=== PATIENT | male | born 1940 | race Caucasian/White ===

== ENCOUNTER 2016-06-17 13:39 | Inpatient (IN) | payer MEDICARE, OTHER ==
[~2016-06-17] VITALS: Ht 172.7 cm; Wt 107.9 kg
[2016-06-17 14:36] VITALS: BP 128/92; PULSE 72; TEMP 98
[2016-06-17 17:21] VITALS: BP 124/59; PULSE 70; TEMP 99.1
[2016-06-17 17:29] VITALS: BP 124/59; PULSE 70; TEMP 99.1
[2016-06-17 18:31] VITALS: BP 124/59; PULSE 70; TEMP 99.1
[2016-06-18 03:13] VITALS: BP 117/50; PULSE 69; TEMP 98
[2016-06-18 09:09] VITALS: BP 157/71; PULSE 74; TEMP 98.8
[2016-06-18 17:37] VITALS: BP 139/60; PULSE 67; TEMP 97.7
[2016-06-19 04:03] VITALS: BP 136/66; PULSE 63; TEMP 98.4
[2016-06-19 07:25] LABS: BASO # 0.1 (0.0-0.2); BASO % 0.6 % (0.0-2.0); EOS # 0.4 (0.0-0.7); EOS % 4.4 % (0-4.0); GRAN # 3.8 (1.4-6.5); GRAN % 45.9 % (42.2-75.2); HEMATOCRIT 38.9 % (42.0-52.0); HEMOGLOBIN 12.9 g/dl (13.5-18.0); LYMPH # 2.9 (1.2-3.4); LYMPH % 35.1 % (20.0-51.0); MEAN CELL VOLUME 96 fl (80.0-100.0); MEAN CORPUSCULAR HEMOGLOBIN 32 pg (27.0-31.0); MEAN CORPUSCULAR HGB CONC 33 g/dl (33.0-37.0); MEAN PLATELET VOLUME 12.6 fl (7.4-10.4); MONO # 1.1 (0.1-0.6); MONO % 13.3 % (1.7-9.3); PLATELET COUNT 127 K/mm3 (130-400); RED BLOOD COUNT 4.07 M/mm3 (4.20-5.60); REDCELL DISTRIBUTION WIDTH-CV 13.2 % (11.5-14.5); WHITE BLOOD COUNT 8.2 K/mm3 (4.8-10.8)
[2016-06-19 07:30] LABS: CALCIUM 9.3 mg/dL (8.4-10.2); CREATININE, serum 1.71 mg/dL (0.66-1.25); MAGNESIUM 1.8 mg/dL (1.6-2.3); POTASSIUM 3.9 mmol/L (3.4-5.0)
[2016-06-19 16:46] VITALS: BP 121/90; PULSE 71; TEMP 97.8
[2016-06-20 05:24] VITALS: BP 148/89; PULSE 84; TEMP 98.2
[2016-06-20 18:50] VITALS: BP 151/61; PULSE 73; TEMP 98
[2016-06-21 05:41] VITALS: BP 137/71; PULSE 72; TEMP 98.3
[2016-06-21 16:01] VITALS: BP 135/58; PULSE 69; TEMP 97.9
[2016-06-21 16:37] VITALS: BP 137/64; PULSE 69; TEMP 98.1
[2016-06-22 04:19] VITALS: BP 137/68; PULSE 72; TEMP 97.1
[2016-06-22 07:19] LABS: CALCIUM 9.6 mg/dL (8.4-10.2); CREATININE, serum 1.47 mg/dL (0.66-1.25); POTASSIUM 4.1 mmol/L (3.4-5.0)
[2016-06-22 17:28] VITALS: BP 120/85; PULSE 78; TEMP 98.8
[2016-06-23 04:29] VITALS: BP 122/98; PULSE 78; TEMP 98.5
[2016-06-23] MEDS ORDERED: CLARITIN 1010 MG/TAB PO (11:47)
[2016-06-23] MEDS ORDERED: PROAIR HFA0.09 MG/AC IH (11:47)
[2016-06-23] MEDS ORDERED: HYTRIN10 M1 PO (11:48)
[2016-06-23] MEDS ORDERED: LIPITOR 40MG TA40 MG PO (11:48)
[2016-06-23] MEDS ORDERED: ASPIRIN E.C. 8181 MG PO (11:49)
[2016-06-23] MEDS ORDERED: NORVASC 10MG10 MG PO (11:49)
[2016-06-23] MEDS ORDERED: TENORMIN100 MG PO (11:49)
[2016-06-23] MEDS ORDERED: TYLENOL 325MG325 MG PO (11:50)
[2016-06-23] MEDS ORDERED: SINEMET-25/251 UDTAB PO (11:50)
[2016-06-23] MEDS ORDERED: NEURONTIN300 MG/CAP PO (11:50)
[2016-06-23] MEDS ORDERED: LEVOXYL0.025 MG PO (11:51)
[2016-06-23] MEDS ORDERED: ZYLOPRIM 100MG100 MG PO (11:51)
[2016-06-23] MEDS ORDERED: ZANTAC 150MG T150 MG PO (11:51)
[2016-06-23] MEDS ORDERED: LEVEMIR FLEX100 U/ML SQ (11:53)
[2016-06-23] MEDS ORDERED: NOVOLOG FLEX100 U/ML SQ (11:53)
== END 2016-06-23 13:11 | disposition home or self-care (01) | DRG 948 ==
PROVIDERS: Internal Medicine
DX: R53.81 Other malaise (principal); N17.9 Acute kidney failure, unspecified; I16.0 Hypertensive urgency; E11.9 Type 2 diabetes mellitus without complications; G20 Parkinson's disease
CPT/HCPCS: 99222-AI; 99232-AI; 99239; J1644; J1815

== ENCOUNTER 2016-09-17 10:30 | Outpatient (RCR) | payer MEDICARE, OTHER ==
[~2016-09-17 10:30] MED LIST: ASPIRIN E.C. 8181 MG PO; CLARITIN 1010 MG/TAB PO; HYTRIN10 M1 PO; LEVEMIR FLEX100 U/ML SQ; LEVOXYL0.025 MG PO; LIPITOR 40MG TA40 MG PO; NEURONTIN300 MG/CAP PO; NORVASC 10MG10 MG PO; NOVOLOG FLEX100 U/ML SQ; PROAIR HFA0.09 MG/AC IH; SINEMET-25/251 UDTAB PO; TENORMIN100 MG PO; TYLENOL 325MG325 MG PO; ZANTAC 150MG T150 MG PO; ZYLOPRIM 100MG100 MG PO
== END 2016-09-18 12:55 | disposition home or self-care (01) ==
LOC: WSPT 10:30
DX: Z47.1 Aftercare following joint replacement surgery (principal); Z96.652 Presence of left artificial knee joint
CPT/HCPCS: G8978-GP; G8979-GP; G8980-GP

== ENCOUNTER → 2016-10-30 | Outpatient (CLI) | payer OTHER, MEDICARE | LOC: MC.RAD 09:30 | DX: R22.31 Localized swelling, mass and lump, right upper limb (principal) ==

== ENCOUNTER 2017-11-19 08:30 | Day surgery (SDC) | payer OTHER ==
[~2017-11-19] VITALS: Ht 172.7 cm; Wt 108.7 kg
[2017-11-19 09:08] VITALS: BP 136/72; PULSE 72; TEMP 97.7
[2017-11-19] MEDS ORDERED: SYNTHROID 0.0.025 MG PO (09:14)
[2017-11-19] MEDS ORDERED: LEVEMIR FLEX100 U/ML SQ (09:15)
[2017-11-19] MEDS ORDERED: COZAAR 50MG50 MG/TAB PO (09:15)
[2017-11-19] MEDS ORDERED: INDOCIN 25MG CA25 MG PO (09:16)
[2017-11-19] MEDS ORDERED: HYTRIN 5MG C5 MG/CAP PO (09:17)
[2017-11-19] MEDS ORDERED: KLOR-CON SPRIN10 MEQ PO (09:17)
[2017-11-19] MEDS ORDERED: TYLENOL 325MG325 MG PO (09:18)
[2017-11-19] MEDS ORDERED: FLONASEALLERGY NS (09:19)
[2017-11-19] MEDS ORDERED: DEBROX OT (09:20)
[2017-11-19] MEDS ORDERED: ANTIVERT 25MG25 MG PO (09:21)
[2017-11-19] MEDS ORDERED: NOVOLOG FLEX100 U/ML SQ (09:21)
[2017-11-19] MEDS ORDERED: LASIX 20MG TABL20 MG PO (09:22)
[2017-11-19] MEDS ORDERED: LIPITOR 80MG80 MG PO (09:22)
[2017-11-19] MEDS ORDERED: ZANTAC 150150 MG PO (09:24)
[2017-11-19] MEDS ORDERED: TENORMIN 5050 MG/TAB PO (09:25)
[2017-11-19] MEDS ORDERED: NEURONTIN300 MG/CAP PO (09:25)
[2017-11-19 11:10] VITALS: BP 100/57; PULSE 67; TEMP 97.7
[2017-11-19 11:25] VITALS: BP 97/49; PULSE 66
[2017-11-19 11:40] VITALS: BP 102/52; PULSE 16; TEMP 68
[2017-11-19 12:28] VITALS: BP 100/53; PULSE 66
== END 2017-11-19 12:00 | disposition home or self-care (01) ==
LOC: SDCO 08:30
DX: Z12.11 Encounter for screening for malignant neoplasm of colon (principal); D12.3 Benign neoplasm of transverse colon; D12.5 Benign neoplasm of sigmoid colon; E11.9 Type 2 diabetes mellitus without complications; E78.00 Pure hypercholesterolemia, unspecified; K57.30 Diverticulosis of large intestine without perforation or abscess without bleeding; Z88.0 Allergy status to penicillin; Z79.82 Long term (current) use of aspirin; Z86.73 Personal history of transient ischemic attack (TIA), and cerebral infarction without residual deficits; Z86.010 Personal history of colon polyps; Z87.891 Personal history of nicotine dependence
CPT/HCPCS: OP; J2250; J2405; J3010; J7030

== ENCOUNTER 2019-03-07 12:07 | Day surgery (SDC) | payer OTHER ==
--- NOTE | 2019-03-06 13:49 | NUR ---
called pt at [phone] and left generic message with my name and our unit phone number for patient to call back.
[~2019-03-07] VITALS: Ht 172.7 cm; Wt 110.0 kg
[2019-03-07] VITALS (12 sets, daily range): BP systolic 123–177; BP diastolic 67–89; PULSE 56–66; TEMP 97.9
[~2019-03-07 12:07] MED LIST changes: +ANTIVERT 25MG25 MG PO; +COZAAR 50MG50 MG/TAB PO; +DEBROX OT; +FLONASEALLERGY NS; +HYTRIN 5MG C5 MG/CAP PO; +INDOCIN 25MG CA25 MG PO; +KLOR-CON SPRIN10 MEQ PO; +LASIX 20MG TABL20 MG PO; +LIPITOR 80MG80 MG PO; +SYNTHROID 0.0.025 MG PO; +TENORMIN 5050 MG/TAB PO; +ZANTAC 150150 MG PO
[2019-03-07] MEDS ORDERED: LEVEMIR FLEX100 U/ML SQ (12:49)
[2019-03-07] MEDS ORDERED: FLOMAX 0.40.4 MG/CAP PO (12:50)
[2019-03-07] MEDS ORDERED: TENORMIN 5050 MG/TAB PO (12:53)
[2019-03-07] MEDS ORDERED: GRALISE300 MG PO (12:53)
[2019-03-07] MEDS ORDERED: LEVOXYL0.05 MG PO (12:54)
[2019-03-07] MEDS ORDERED: ZANTAC 150150 MG PO (12:55)
[2019-03-07] MEDS ORDERED: OMEGA-3 1000 MG1 CAP PO (12:55)
[2019-03-07] MEDS ORDERED: GLUCOSAMINE 1000 PO (12:56)
[2019-03-07] MEDS ORDERED: MULTI VITAMINS1 TAB PO (12:57)
[2019-03-07] MEDS ORDERED: CALCIUM CARBON650 M2 PO (12:57)
[2019-03-07] MEDS ORDERED: OCUVITE1 TA1 PO (12:58)
[2019-03-07] MEDS ORDERED: VITAMIN D3400 I1 PO (12:59)
[2019-03-07] MEDS ORDERED: VITAMIN C500 MG PO (13:00)
[2019-03-07 13:18] LABS: PROTHROMBIN TIME 12.1 SECONDS (9.7-12.8)
[2019-03-07 13:19] LABS: HEMATOCRIT 41.2 % (42.0-52.0); HEMOGLOBIN 14.1 g/dl (13.5-18.0); MEAN CELL VOLUME 94 fl (80.0-100.0); MEAN CORPUSCULAR HEMOGLOBIN 32 pg (27.0-31.0); MEAN CORPUSCULAR HGB CONC 34 g/dl (33.0-37.0); MEAN PLATELET VOLUME 12.6 fl (7.4-10.4); PLATELET COUNT 116 K/mm3 (130-400); RED BLOOD COUNT 4.37 M/mm3 (4.20-5.60); REDCELL DISTRIBUTION WIDTH-CV 13.3 % (11.5-14.5)
[2019-03-07 14:02] LABS: CALCIUM 9.2 mg/dL (8.4-10.2); CREATININE, serum 1.3 (0.66-1.25); POTASSIUM 3.9 mmol/L (3.4-5.0)
--- NOTE | 2019-03-07 14:23 | NUR ---
SEE MERGE REPORT FOR MEDICATION ADMINISTRATION TIMES WELL INTRA/POST SEDATION ASSESSMENTS. PT UNABLE TO SUPINATE RIGHT ARM RT ROTATOR CUFF INJURY. PT PREFERS TO PROCEDE WITH GROIN ACCESS. PT SECURED TO PROCEDURE TABLE WITH SAFETY STRAP AROUND TORSO.
--- NOTE | 2019-03-07 15:40 | NUR ---
Pt back from cathlab, bedside report from Chucho Menendez RN. groin visualized, itis soft without hematoma, clean and dry gauze dressing in place. pt is alert and oriented at baseline with at bs. wctm
--- NOTE | 2019-03-07 15:44 | NUR ---
Pt transferred to room 12 for recovery via stretcher. IVF at 30 ml/hr per dial a flow. Pt connected to vital signs monitor and ecg per policy. Bedside report to Gemma MCCLOUD. Groin site stable, dressing clean, dry and intact. Distal pulses +1 and remain unchanged since prior to procedure. at bedside and all questions answered.
--- NOTE | 2019-03-07 16:25 | NUR ---
small amt blood showing through dressing, pressure held x [address] Vicente who gave verbal okay to change dressing. cms remains intact. no active bleeding/ expansion of blood on gauze or hematoma
--- NOTE | 2019-03-07 16:40 | NUR ---
Dressing changed using sterile technique/ there was no bleeding from site... site dressed with sterile 4x4 gauze and tegaderm dressing.
--- NOTE | 2019-03-07 19:40 | NUR ---
Pt is ready for discharge. he has been able to eat and drink while on bedrest. he was able to void x 2 using urinal while on bedrest. at time of discharge, pt was able to ambulate around the nurses station with his cane, steady gait with standby assist. dc instructions were reviewed with pt andhis ...they verbalized understanding. after ambulating, pt's rt groin site remained free of hematoma, and dressing was clean and dry. iv was dc'd, dressing applied. pt was escorted to vehicle by w/c. driving him home.
== END 2019-03-07 20:15 | disposition home or self-care (01) ==
LOC: COL.CAR 12:07
PROVIDERS: Internal Medicine Interventional Cardiology
DX: I25.10 Atherosclerotic heart disease of native coronary artery without angina pectoris (principal); J44.9 Chronic obstructive pulmonary disease, unspecified; R94.39 Abnormal result of other cardiovascular function study; R25.2 Cramp and spasm; R60.0 Localized edema; I12.9 Hypertensive chronic kidney disease with stage 1 through stage 4 chronic kidney disease, or unspecified chronic kidney disease; E11.22 Type 2 diabetes mellitus with diabetic chronic kidney disease; N18.9 Chronic kidney disease, unspecified; Z83.3 Family history of diabetes mellitus; Z79.82 Long term (current) use of aspirin; Z79.51 Long term (current) use of inhaled steroids; Z79.4 Long term (current) use of insulin; Z87.891 Personal history of nicotine dependence; Z86.73 Personal history of transient ischemic attack (TIA), and cerebral infarction without residual deficits; Z82.49 Family history of ischemic heart disease and other diseases of the circulatory system; Z88.0 Allergy status to penicillin; Z88.8 Allergy status to other drugs, medicaments and biological substances; Z91.048 Other nonmedicinal substance allergy status
CPT/HCPCS: J0583; J1644; J2250; J3010; Q9967

== ENCOUNTER 2019-08-18 14:05 | Outpatient (RCR) | payer OTHER ==
[~2019-08-18 14:05] MED LIST changes: +CALCIUM CARBON650 M2 PO; +FLOMAX 0.40.4 MG/CAP PO; +GLUCOSAMINE 1000 PO; +GRALISE300 MG PO; +LEVOXYL0.05 MG PO; +MULTI VITAMINS1 TAB PO; +OCUVITE1 TA1 PO; +OMEGA-3 1000 MG1 CAP PO; +VITAMIN C500 MG PO; +VITAMIN D3400 I1 PO
== END 2019-09-21 | disposition home or self-care (01) ==
LOC: COL.CR
DX: Z48.812 Encounter for surgical aftercare following surgery on the circulatory system (principal); Z95.5 Presence of coronary angioplasty implant and graft

== ENCOUNTER → 2020-04-08 | Outpatient (CLI) | payer OTHER ==
[2020-04-08 14:55] LABS: HEMATOCRIT 42.2 % (42.0-52.0); HEMOGLOBIN 14.3 g/dl (13.5-18.0); MEAN CELL VOLUME 94 fl (80.0-100.0); MEAN CORPUSCULAR HEMOGLOBIN 32 pg (27.0-31.0); MEAN CORPUSCULAR HGB CONC 34 g/dl (33.0-37.0); PLATELET COUNT 105 K/mm3 (130-400); REDCELL DISTRIBUTION WIDTH-CV 13.2 % (11.5-14.5)
[2020-04-08 15:09] LABS: ANION GAP 9 mmol/L (7-16); BLOOD UREA NITROGEN 25 mg/dL (9-20); CALCIUM 9.4 mg/dL (8.4-10.2); CARBON DIOXIDE 26 mmol/L (22-30); CHLORIDE 106 mmol/L (98-107); CREATININE, serum 1.47 (0.66-1.25); GLUCOSE 115 mg/dL (74-106); POTASSIUM 4.3 mmol/L (3.4-5.0); SODIUM 140 mmol/L (137-145)
[2020-04-08 15:24] LABS: TROPONIN-I < 0.012 ng/mL (0.000-0.035)
== END ==
LOC: COL.LAB 14:10
PROVIDERS: Nurse Practitioner
DX: I25.10 Atherosclerotic heart disease of native coronary artery without angina pectoris (principal); J44.9 Chronic obstructive pulmonary disease, unspecified; I10 Essential (primary) hypertension

== ENCOUNTER → 2020-04-09 | Outpatient (CLI) | payer OTHER | LOC: COL.RAD 10:53 | DX: R06.02 Shortness of breath (principal); R79.1 Abnormal coagulation profile | CPT/HCPCS: Q9967 ==

== ENCOUNTER 2020-07-04 09:57 | Emergency (ER) | payer MEDICARE, OTHER ==
[~2020-07-04] VITALS: Ht 172.7 cm; Wt 110.9 kg
[2020-07-04 10:01] VITALS: TEMP 98.3
[2020-07-04 10:36] LABS: BASO % 0.5 % (0.0-2.0); EOS # 0.2 (0.0-0.7); EOS % 2.2 % (0-4.0); GRAN # 5.1 (1.4-6.5); GRAN % 57.6 % (42.2-75.2); HEMATOCRIT 43.2 % (42.0-52.0); HEMOGLOBIN 14.6 g/dl (13.5-18.0); LYMPH # 2.5 (1.2-3.4); LYMPH % 28.1 % (20.0-51.0); MEAN CELL VOLUME 95 fl (80.0-100.0); MEAN CORPUSCULAR HEMOGLOBIN 32 pg (27.0-31.0); MEAN CORPUSCULAR HGB CONC 34 g/dl (33.0-37.0); MONO % 11.1 % (1.7-9.3); PLATELET COUNT 118 K/mm3 (130-400); RED BLOOD COUNT 4.56 M/mm3 (4.20-5.60); REDCELL DISTRIBUTION WIDTH-CV 13.6 % (11.5-14.5)
[2020-07-04 10:49] LABS: ALANINE AMINOTRANSFERASE 13 U/L (4-49); ALBUMIN 4.1 gm/dL (3.5-5.0); ALKALINE PHOSPHATASE 89 U/L (50-136); ANION GAP 10 mmol/L (7-16); AST,SGOT 36 U/L (15-37); BILIRUBIN,TOTAL 0.8 mg/dL (0.0-1.0); BLOOD UREA NITROGEN 24 mg/dL (9-20); CALCIUM 9.6 mg/dL (8.4-10.2); CARBON DIOXIDE 23 mmol/L (22-30); CHLORIDE 107 mmol/L (98-107); CREATININE, serum 1.43 (0.66-1.25); GLUCOSE 145 mg/dL (74-106); POTASSIUM 4.1 mmol/L (3.4-5.0); SODIUM 140 mmol/L (137-145); TOTAL PROTEIN 7.8 gm/dL (6.4-8.2); URIC ACID 6.9 mg/dL (3.5-8.5)
[2020-07-04 10:51] LABS: C-REACTIVE PROTEIN < 0.5 mg/dL (0.0-0.9)
[2020-07-04 10:55] LABS: ERYTHROCYTE SEDIMENTATION RATE 11 mm/hr (0-30)
[2020-07-04] MEDS ORDERED: CEPHALEXIN500 M1 PO (11:43)
[2020-07-04] MEDS ORDERED: DOXYCYCLINE 10100 MG PO (11:43)
[2020-07-04 12:15] VITALS: BP 188/90; PULSE 89
== END 2020-07-04 12:15 | disposition home or self-care (01) ==
LOC: COL.ER 09:57
PROVIDERS: Physician Assistant
DX: E11.621 Type 2 diabetes mellitus with foot ulcer (principal); L97.529 Non-pressure chronic ulcer of other part of left foot with unspecified severity; I10 Essential (primary) hypertension; M10.9 Gout, unspecified; E78.5 Hyperlipidemia, unspecified; N40.0 Benign prostatic hyperplasia without lower urinary tract symptoms; Z87.891 Personal history of nicotine dependence; Z90.89 Acquired absence of other organs; Z88.0 Allergy status to penicillin; Z79.4 Long term (current) use of insulin; Z79.51 Long term (current) use of inhaled steroids; Z79.82 Long term (current) use of aspirin; Z79.890 Hormone replacement therapy
CPT/HCPCS: J0696

== ENCOUNTER 2020-10-03 12:20 | Day surgery (SDC) | payer OTHER ==
[~2020-10-03] VITALS: Ht 172.8 cm; Wt 110.0 kg
[2020-10-03] VITALS (8 sets, daily range): BP systolic 120–164; BP diastolic 66–85; PULSE 76–79; TEMP 97.7
[~2020-10-03 12:20] MED LIST changes: +CEPHALEXIN500 M1 PO; +DOXYCYCLINE 10100 MG PO; +DUO-KAPS1 CAP PO; -MULTI VITAMINS1 TAB PO
[2020-10-03 13:20] LABS: HEMATOCRIT 40.9 % (42.0-52.0); HEMOGLOBIN 13.7 g/dl (13.5-18.0); MEAN CELL VOLUME 95 fl (80.0-100.0); MEAN CORPUSCULAR HEMOGLOBIN 32 pg (27.0-31.0); MEAN CORPUSCULAR HGB CONC 34 g/dl (33.0-37.0); MEAN PLATELET VOLUME 11.9 fl (7.4-10.4); PLATELET COUNT 122 K/mm3 (130-400); RED BLOOD COUNT 4.33 M/mm3 (4.20-5.60); REDCELL DISTRIBUTION WIDTH-CV 14.2 % (11.5-14.5)
[2020-10-03 13:26] LABS: INR 1.2 (0.8-3.0)
[2020-10-03 13:28] LABS: PARTIAL THROMBOPLASTIN TIME 31.9 SECONDS (26.0-37.0)
[2020-10-03 13:29] LABS: CALCIUM 9.2 mg/dL (8.4-10.2); CREATININE, serum 1.41 (0.66-1.25); POTASSIUM 4.4 mmol/L (3.4-5.0)
[2020-10-03] MEDS ORDERED: PROTONIX20 MG PO (13:54)
[2020-10-03] MEDS ORDERED: IMDUR 60MG60 MG/TAB PO (13:54)
[2020-10-03] MEDS ORDERED: COREG 25MG25 MG/TAB PO (13:55)
--- NOTE | 2020-10-03 15:55 | NUR ---
SEE MERGE DOCUMENTATION FOR MEDICATION ADMINISTRATION AND INTRA/POST PROCEDURE SEDATION ASSESSMENTS.
--- NOTE | 2020-10-03 16:40 | NUR ---
pt returned from nursery laborer via bed to eu 12, in room, had talked wit Dr Guerrero earlier, pt is awake and alert, no c/o pain. call light in reach, sips on water
--- NOTE | 2020-10-03 17:15 | NUR ---
pt sits up, assists with meal, no c/o or requests at this time
--- NOTE | 2020-10-03 18:30 | NUR ---
radial band released by 2cc internals over 20 min with no bleeding or swelling, bandaid oversite with coban wrap. pt up to b/r with assist to void, sits up in bed, iv d'cd intact. reviewed discharge inst. with pt on care of site, activity, followup and precautions with verbal understanding with and pt.
--- NOTE | 2020-10-03 19:10 | NUR ---
pt up in room dressed, discharged via w/c to car with
== END 2020-10-03 19:10 | disposition home or self-care (01) ==
LOC: COL.CAR 12:20
PROVIDERS: Internal Medicine Interventional Cardiology
DX: I25.10 Atherosclerotic heart disease of native coronary artery without angina pectoris (principal); I73.9 Peripheral vascular disease, unspecified; Z79.82 Long term (current) use of aspirin; Z79.899 Other long term (current) drug therapy; Z79.4 Long term (current) use of insulin; Z79.02 Long term (current) use of antithrombotics/antiplatelets; E11.22 Type 2 diabetes mellitus with diabetic chronic kidney disease; Z86.73 Personal history of transient ischemic attack (TIA), and cerebral infarction without residual deficits; I12.9 Hypertensive chronic kidney disease with stage 1 through stage 4 chronic kidney disease, or unspecified chronic kidney disease; N18.9 Chronic kidney disease, unspecified
CPT/HCPCS: C1769; J1644; J2250; J3010; Q9967

== ENCOUNTER 2021-01-29 11:35 | Emergency (ER) | payer OTHER ==
[~2021-01-29] VITALS: Ht 172.7 cm; Wt 110.5 kg
[~2021-01-29 11:35] MED LIST changes: +COREG 25MG25 MG/TAB PO; +IMDUR 60MG60 MG/TAB PO; +PROTONIX20 MG PO
[2021-01-29 12:01] VITALS: BP 154/72; TEMP 97.9
[2021-01-29 13:43] VITALS: PULSE 77
== END 2021-01-29 13:43 | disposition home or self-care (01) ==
LOC: COL.ER 11:35
DX: S91.205A Unspecified open wound of left lesser toe(s) with damage to nail, initial encounter (principal); I10 Essential (primary) hypertension; E11.9 Type 2 diabetes mellitus without complications; Z79.4 Long term (current) use of insulin; Z79.899 Other long term (current) drug therapy; W22.03XA Walked into furniture, initial encounter

== ENCOUNTER 2021-04-03 10:33 | Emergency (ER) | payer OTHER ==
[~2021-04-03] VITALS: Ht 172.7 cm; Wt 109.5 kg
[2021-04-03] MEDS ORDERED: STRIVERDI2.5 MCG/Ac IH (11:16)
[2021-04-03 11:28] LABS: BASO # 0.1 K/mm3 (0.0-0.2); BASO % 0.6 % (0.0-2.0); EOS # 0.2 K/mm3 (0.0-0.7); EOS % 2.5 % (0-4.0); GRAN # 4.9 K/mm3 (1.4-6.5); GRAN % 59.1 % (42.2-75.2); HEMATOCRIT 41.3 % (42.0-52.0); LYMPH # 2.3 K/mm3 (1.2-3.4); LYMPH % 27.1 % (20.0-51.0); MEAN CELL VOLUME 95 fl (80.0-100.0); MEAN CORPUSCULAR HEMOGLOBIN 32 pg (27.0-31.0); MEAN CORPUSCULAR HGB CONC 34 g/dl (33.0-37.0); MEAN PLATELET VOLUME 12.2 fl (7.4-10.4); MONO # 0.8 K/mm3 (0.1-0.6); MONO % 10.1 % (1.7-9.3); PLATELET COUNT 116 K/mm3 (130-400); RED BLOOD COUNT 4.35 M/mm3 (4.20-5.60)
[2021-04-03 11:42] LABS: ALBUMIN 3.2 gm/dL (3.4-4.8); BILIRUBIN,TOTAL 0.8 mg/dL (0.2-1.2); C-REACTIVE PROTEIN 0.26 mg/dL (0.00-0.50); CALCIUM 9.3 mg/dL (8.4-10.2); CREATININE, serum 1.64 mg/dL (0.72-1.25); TOTAL PROTEIN 7.5 gm/dL (6.2-8.1)
[2021-04-03] MEDS ORDERED: CEPHALEXIN500 M1 PO (12:13)
[2021-04-03 12:39] VITALS: BP 142/63; PULSE 82; TEMP 97.8
== END 2021-04-03 12:50 | disposition home or self-care (01) ==
LOC: COL.ER 10:33
PROVIDERS: Nurse Practitioner
DX: L53.8 Other specified erythematous conditions (principal); E11.9 Type 2 diabetes mellitus without complications; I10 Essential (primary) hypertension; Z86.73 Personal history of transient ischemic attack (TIA), and cerebral infarction without residual deficits; Z87.891 Personal history of nicotine dependence; Z79.4 Long term (current) use of insulin